=== PATIENT | male | born 1965 | race Caucasian/White ===

== ENCOUNTER 2024-07-07 13:09 | Emergency (ER) | payer MEDICAID ==
[~2024-07-07] VITALS: Ht 185.4 cm; Wt 145.8 kg
[2024-07-07 13:18] VITALS: BP 174/115; PULSE 87; RESP 16; TEMP 98.6; O2SAT 96
[2024-07-07] MEDS ORDERED: ATOR40TA PO (14:32)
[2024-07-07] MEDS ORDERED: APIX5TAB5 PO (14:32)
[2024-07-07] MEDS ORDERED: METO-411 PO (14:32)
[2024-07-07] MEDS ORDERED: RYT225T PO (14:32)
== END 2024-07-07 14:39 | disposition home or self-care (01) ==
LOC: ER 13:10
DX: Z00.8 Encounter for other general examination (principal); Z76.0 Encounter for issue of repeat prescription
CPT/HCPCS: 99281

== ENCOUNTER 2024-10-17 12:38 | Emergency (ER) | payer MEDICAID ==
[~2024-10-17] VITALS: Ht 188 cm; Wt 159.1 kg
[~2024-10-17 12:38] MED LIST: APIX5TAB5 PO; ATOR40TA PO; METO-411 PO; RYT225T PO
--- NOTE | 2024-10-17 12:54 | Physician Documentation ---
HPI ~ General Stated Complaint: MED REFILL Time Seen by MD: 13:02 History of Present Illness HPI Comments Presents to ER reporting that he is new to the area and he doesn't have a PCP yet. Requests refills on his medications. Denies any concerns and reports that he feels overall well today. Medication Reconciliation Allergies: Coded Allergies: No Known Allergies (Unverified , 10/17/24) Scheduled Apixaban (Eliquis), 1 TAB PO BID Apixaban (Eliquis), 1 TAB PO Q12H Atorvastatin Calcium* (Lipitor*), 1 TAB PO DAILY Atorvastatin Calcium* (Lipitor*), 1 TAB PO DAILY Ipratropium/Albuterol Sulfate (Duoneb 2.5-0.5 Mg/3 Ml Soln), 1 VIAL NEB Q12H Metoprolol Succinate (Metoprolol Succinate), 1 TAB PO DAILY Metoprolol Succinate (Metoprolol Succinate), 1 TAB PO DAILY Propafenone Hcl (RYTHMOL tablet), 1 TAB PO Q12H Propafenone Hcl (RYTHMOL tablet), 1 TAB PO Q12H Quetiapine Fumarate (Seroquel), 1 TAB PO HS Scheduled PRN Albuterol Sulfate (Ventolin Hfa), 2 PUFFS INH Q4HPRN PRN for wheezing Review of Systems ROS As stated above in the HPI, otherwise all systems are reviewed and negative. Physical Exam Physical Exam Physical Exam General: Alert, no apparent distress. Neck: Full range of motion. Respiratory: Lungs clear, no respiratory distress. Dim bases. Chest: No accessory muscle use. Cardiovascular: Regular rate and rhythm, no murmurs. Gastrointestinal: Soft, nontender, nondistended. Bowels sounds present. Extremities: Normal range of motion, no deformity. Neurologic: Oriented x4. Psychiatric: Normal mood and affect. Skin: Normal color, warm and dry. No edema, no ecchymosis. Progress Results/Orders Results/Orders Vital Signs 10/17/24 12:59 Temp 97.8 Pulse 89 Resp 18 B/P (MAP) 182/109 Pulse Ox 99 O2 Flow Rate 0 Medical Decision Making Differential Dx:Considerations: Include: Adverse circumstances, Economic, Psychosocial, Medical services unavail., Medication refill, Medication non- compliance Departure Time of Disposition: 13:03 Disposition: 01 HOME / SELF CARE / HOMELESS Impression: Primary Impression: Medication refill Discharge Instructions: Medicine Refill at the Emergency Department Additional Instructions: Good luck finding a primary care provider. Return for any emergent concerns. Referrals: NO PRIMARY CARE PROVIDER (PCP) Prescriptions Ipratropium/Albuterol Sulfate (Duoneb 2.5-0.5 Mg/3 Ml Soln) 0.5 Mg-3 Mg (2.5 Mg Base)/3 Ml Ampul.neb 1 VIAL NEB Q12H for 30 Days, #180 ML 0 Refills Prov: FIDE SOMMERS NP 10/17/24 Albuterol Sulfate (Ventolin Hfa) 90 Mcg Hfa.aer.ad 2 PUFFS INH Q4HPRN PRN for wheezing for 30 Days, #18 GM 0 Refills Prov: FIDE SOMMERS NP 10/17/24 Quetiapine Fumarate (SEROQUEL) 100 Mg Tablet 1 TAB PO HS for 30 Days, #30 TAB 0 Refills Prov: FIDE SOMMERS NP 10/17/24 Metoprolol Succinate (Metoprolol Succinate) 100 Mg Tab.sr.24h 1 TAB PO DAILY for 30 Days, #30 TAB 0 Refills Prov: FIDE SOMMERS NP 10/17/24 Atorvastatin Calcium* (Lipitor*) 40 Mg Tablet 1 TAB PO DAILY for 30 Days, #30 TAB Prov: FIDE SOMMERS NP 10/17/24 Propafenone Hcl (RYTHMOL tablet) 225 Mg Tablet 1 TAB PO Q12H for 30 Days, #60 TAB 0 Refills Prov: FIDE SOMMERS NP 10/17/24 Apixaban (ELIQUIS) 5 Mg Tablet 1 TAB PO Q12H for 30 Days, #60 TAB 0 Refills Prov: FIDE SOMMERS NP 10/17/24 Education Educated: Patient Educated regarding: diagnosis, treatment, prognosis, need for follow up Signature Scribe Signature: no scribe Attestation: The note accurately reflects work and decisions made by me.Fide Peace NP 10/17/24 13:12 FIDE SOMMERS NP Oct 17, 2024 12:54
[2024-10-17 12:59] VITALS: BP 182/109; PULSE 89; RESP 18; TEMP 97.8; O2SAT 99
[2024-10-17] MEDS ORDERED: ALBU18HF2 INH (13:05)
[2024-10-17] MEDS ORDERED: APIX5TAB3 PO (13:05)
[2024-10-17] MEDS ORDERED: RYT225T PO (13:05)
[2024-10-17] MEDS ORDERED: ATOR40TA PO (13:05)
[2024-10-17] MEDS ORDERED: METO-411 PO (13:05)
[2024-10-17] MEDS ORDERED: IPRA3AMP31 NEB (13:05)
[2024-10-17] MEDS ORDERED: QUET-1 PO (13:05)
== END 2024-10-17 13:11 | disposition home or self-care (01) ==
LOC: ER 12:39
DX: F41.9 Anxiety disorder, unspecified (principal); Z76.0 Encounter for issue of repeat prescription; Z79.899 Other long term (current) drug therapy
CPT/HCPCS: 99281

== ENCOUNTER 2024-11-08 10:36 | Emergency (ER) | payer MEDICAID ==
[~2024-11-08] VITALS: Ht 185.4 cm; Wt 146.9 kg
[~2024-11-08 10:36] MED LIST changes: +ALBU18HF2 INH; +APIX5TAB3 PO; +IPRA3AMP31 NEB; +QUET-1 PO
[2024-11-08 10:48] VITALS: BP 144/71; PULSE 69; RESP 20; O2SAT 96
[2024-11-08] MEDS ORDERED: APIX5TAB5 PO (11:07)
[2024-11-08] MEDS ORDERED: QUET-1 PO (11:07)
[2024-11-08] MEDS ORDERED: RYT225T PO (11:07)
[2024-11-08] MEDS ORDERED: METO-411 PO (11:07)
--- NOTE | 2024-11-08 11:07 | Physician Documentation ---
HPI ~ General Chief Complaint: Medication Refill Stated Complaint: MED REFILL Time Seen by MD: 11:01 History of Present Illness HPI Comments Patient presents here to have his medications refilled as he has had difficulty obtaining a physician in primary care. Denies any current complaints Without Medications Since: Nov 08, 2024 Medication Reconciliation Allergies: Coded Allergies: No Known Allergies (Unverified , 11/08/24) Scheduled Apixaban (Eliquis), 1 TAB PO Q12H Apixaban (Eliquis), 1 TAB PO BID Atorvastatin Calcium* (Lipitor*), 1 TAB PO DAILY Atorvastatin Calcium* (Lipitor*), 1 TAB PO DAILY Ipratropium/Albuterol Sulfate (Duoneb 2.5-0.5 Mg/3 Ml Soln), 1 VIAL NEB Q12H Metoprolol Succinate (Metoprolol Succinate), 1 TAB PO DAILY Metoprolol Succinate (Metoprolol Succinate), 1 TAB PO DAILY Propafenone Hcl (RYTHMOL tablet), 1 TAB PO Q12H Propafenone Hcl (RYTHMOL tablet), 1 TAB PO Q12H Quetiapine Fumarate (Seroquel), 1 TAB PO HS Scheduled PRN Albuterol Sulfate (Ventolin Hfa), 2 PUFFS INH Q4HPRN PRN for wheezing Review of Systems All Other Systems at this time: Reviewed and Negative ROS As stated above in the HPI, otherwise all systems are reviewed and negative. Physical Exam Physical Exam Vital Signs: Temperature: 97.9, Source: Temporal, Heart Rate: 69, Respiratory Rate: 20, BP: 144/71, Pulse Oximetry: 96, Weight: 146.900 Oxygen Flow Rate: 0 Physical Exam General: Alert, no apparent distress. Respiratory: Lungs clear, no respiratory distress. Cardiovascular: Regular rate and rhythm, no murmurs. Gastrointestinal: Soft, nontender, nondistended. Bowels sounds present. Neurologic: Oriented x4. Psychiatric: Normal mood and affect. Skin: Normal color, warm and dry. No edema, no ecchymosis. Progress Results/Orders Results/Orders Vital Signs 11/08/24 11/08/24 10:48 11:20 Temp 97.9 97.9 Pulse 69 Resp 20 B/P (MAP) 144/71 Pulse Ox 96 O2 Flow Rate 0 Medical Decision Making Findings Meds refilled as requested Differential Dx:Considerations: Include: Adverse circumstances, Economic, Psychosocial, Medical services unavail., Medication refill, Medication non- compliance, Other Departure Impression: Primary Impression: General medical exam Discharge Instructions: Medicine Refill at the Emergency Department Referrals: NO PRIMARY CARE PROVIDER (PCP) Prescriptions Quetiapine Fumarate (SEROQUEL) 100 Mg Tablet 1 TAB PO HS for 30 Days, #30 TAB 0 Refills Prov: BISHOP BARRY NP 11/08/24 Apixaban (Eliquis) 5 Mg (74 Tabs) Tab.ds.pk 1 TAB PO BID for 30 Days, #60 TAB 3 Refills Prov: BISHOP BARRY NP 11/08/24 Metoprolol Succinate (Metoprolol Succinate) 100 Mg Tab.sr.24h 1 TAB PO DAILY for 30 Days, #30 TAB 3 Refills Prov: BISHOP BARRY NP 11/08/24 Propafenone Hcl (RYTHMOL tablet) 225 Mg Tablet 1 TAB PO Q12H for 30 Days, #60 TAB 3 Refills Prov: BISHOP BARRY NP 11/08/24 Education Educated: Patient Educated regarding: diagnosis Signature Scribe Signature: h Attestation: Scribed for Bishop Barry Wound Treatment Rn by Bishop Peace NP . 11/08/24 18:28 BISHOP BARRY NP Nov 08, 2024 11:07
[2024-11-08 11:20] VITALS: TEMP 97.9
== END 2024-11-08 11:21 | disposition home or self-care (01) ==
LOC: ER 10:37
DX: F20.9 Schizophrenia, unspecified (principal); Z76.0 Encounter for issue of repeat prescription; Z79.899 Other long term (current) drug therapy
CPT/HCPCS: 99281

== ENCOUNTER 2025-02-28 10:47 | Emergency (ER) | payer MEDICAID ==
[~2025-02-28] VITALS: Ht 185.4 cm; Wt 150.0 kg
[~2025-02-28 10:47] MED LIST changes: -RYT225T PO; +[UNRECOGNIZED DRUG - CODE] CORPAK; +[UNRECOGNIZED DRUG - CODE] PO
[2025-02-28 10:54] VITALS: BP 159/102; PULSE 88; RESP 16; TEMP 97; O2SAT 94
[2025-02-28] MEDS ORDERED: ATOR40TA72 PO (12:24)
[2025-02-28] MEDS ORDERED: APIX5TAB3 PO (12:24)
[2025-02-28] MEDS ORDERED: [UNRECOGNIZED DRUG - CODE] PO (12:25)
--- NOTE | 2025-02-28 12:26 | Physician Documentation ---
HPI ~ General Chief Complaint: Medication Refill Stated Complaint: MED REQUEST Time Seen by MD: 10:58 Primary Medical Doctor: none History of Present Illness HPI Comments 59-year-old male with chronic medical history to include coronary artery disease presents again in the Emergency department for prescription refill. Has been in the [facility] for a year yet has not establish with primary care or healthcare maintenance and prescription refills. He has presented to the emergency department 5 times in the last year for medication refills. Medication Reconciliation Allergies: Coded Allergies: No Known Allergies (Unverified , 02/28/25) Scheduled Apixaban (Eliquis), 1 TAB PO Q12H Apixaban (Eliquis), 1 TAB PO BID Apixaban (Eliquis), 1 TAB PO Q12H Apixaban (Eliquis), 1 TAB PO Q12H Atorvastatin Calcium (Atorvastatin Calcium), 1 TAB PO DAILY Atorvastatin Calcium* (Lipitor*), 1 TAB PO DAILY Ipratropium/Albuterol Sulfate (Duoneb 2.5-0.5 Mg/3 Ml Soln), 1 VIAL NEB Q12H Metoprolol Succinate (Metoprolol Succinate), 1 TAB PO DAILY Metoprolol Succinate (Metoprolol Succinate), 1 TAB PO DAILY Propafenone Hcl (RYTHMOL tablet), 1 TAB PO Q12H Propafenone Hcl (RYTHMOL tablet), 1 TAB PO Q12H Propafenone Hcl (RYTHMOL tablet), 225 MG [place] BID Propafenone Hcl (RYTHMOL tablet), 1 TAB PO Q12H Quetiapine Fumarate (Seroquel), 1 TAB PO HS Quetiapine Fumarate (Seroquel), 1 TAB PO HS Scheduled PRN Albuterol Sulfate (Ventolin Hfa), 2 PUFFS INH Q4HPRN PRN for wheezing Review of Systems All Other Systems at this time: Reviewed and Negative Physical Exam Physical Exam Vital Signs: RN Vital Signs have been reviewed: Yes, Temperature: 97.0, Source: Temporal, Heart Rate: 88, Respiratory Rate: 16, BP: 159/102, Pulse Oximetry: 94, Weight: 150.000 Oxygen Flow Rate: 0 General Appearance: alert, WD/WN, obese Pupils/EOM/Fundus: PERRLA Respiratory: lungs clear Chest: no accessory muscle use Cardiovascular: normal peripheral pulses, regular rate, rhythm, no edema, no gallop, no JVD, no murmur Gastrointestinal: normal palpation Extremities: normal inspection Neurologic: oriented x4 Motor / Sensory: no motor deficit, no sensory deficit Thought/Hallucinations: normal thought pattern Affect: appropriate Skin: warm/dry Progress Results/Orders Results/Orders Vital Signs 02/28/25 10:54 Temp 97.0 Pulse 88 Resp 16 B/P (MAP) 159/102 Pulse Ox 94 O2 Flow Rate 0 Medical Decision Making Additional information obtaine: other (Rx) Findings 59-year-old male who can reprint since to the emergency department requesting a prescription refill. Has been without primary care management for a year yet receiving prescriptions every couple of months in the emergency department for management of coronary artery disease. I have refilled three of the four prescriptions and advised the patient the he must follow up with local primary care services for additional prescription refills and more importantly healthcare maintenance regarding his known health issues and preventive health care maintenance. Differential Dx:Considerations: Include: Adverse circumstances, Economic, Psychosocial, Medical services unavail., Medication refill, Medication non-com pliance Departure Disposition: 01 HOME / SELF CARE / HOMELESS Impression: Primary Impression: Medication refill Additional Impression: CAD (coronary artery disease) Condition: Stable Discharge Instructions: Medicine Refill at the Emergency Department Additional Instructions: Please establish care with [facility] for healthcare maintenance and further medication refills. Referrals: NO PRIMARY CARE PROVIDER (PCP) Prescriptions Propafenone Hcl (RYTHMOL tablet) 225 Mg Tablet 1 TAB PO Q12H for 30 Days, #60 TAB 0 Refills Prov: HENRY BENTLEY 02/28/25 Atorvastatin Calcium (Atorvastatin Calcium) 40 Mg Tablet 1 TAB PO DAILY for 30 Days, #30 TAB 0 Refills Prov: HENRY BENTLEY 02/28/25 Apixaban (ELIQUIS) 5 Mg Tablet 1 TAB PO Q12H for 30 Days, #60 TAB 0 Refills Prov: HENRY BENTLEY 02/28/25 Education Educated: Patient Educated regarding: diagnosis, treatment, prognosis, need for follow up Signature Scribe Signature: . Attestation: . HENYR BENTLEY Feb 28, 2025 12:26
== END 2025-02-28 12:35 | disposition home or self-care (01) ==
LOC: ER 10:48
DX: I25.10 Atherosclerotic heart disease of native coronary artery without angina pectoris (principal); Z76.0 Encounter for issue of repeat prescription; Z79.899 Other long term (current) drug therapy
CPT/HCPCS: 99282

== ENCOUNTER 2025-03-18 09:55 | Emergency (ER) | payer MEDICAID ==
[~2025-03-18] VITALS: Ht 185.4 cm; Wt 149.1 kg
[~2025-03-18 09:55] MED LIST changes: +ATOR40TA72 PO
[2025-03-18 10:12] VITALS: BP 171/106; PULSE 96; RESP 16; TEMP 97.1; O2SAT 92
--- NOTE | 2025-03-18 11:16 | Physician Documentation ---
HPI ~ General Chief Complaint: Medication Refill Stated Complaint: MED REFILLS Time Seen by MD: 10:26 OK to notify your PCP?: Yes Primary Medical Doctor: none Source: patient Mode of Arrival: POV Exam Limitations: no limitations History of Present Illness HPI Comments Requesting refill of multiple medications. He is requesting Eliquis, metoprolol, atorvastatin, run fall, albuterol inhaler refill and albuterol nebulizer fluid. He reports that he uses his nebulizer once to twice a day. He also is wanting to stop smoking in his cut himself down to less than half a pack a day. He is requesting some nicotine patches. Reports that he has turned in a new patient packet to [facility] in his just waiting for an appointment to take over management of his medications. Medication Reconciliation Allergies: Coded Allergies: No Known Allergies (Unverified , 03/18/25) Scheduled Albuterol Sulfate Nebs* (Proventil Nebs*), 1 VIAL NEB BID Apixaban (Eliquis), 1 TAB PO Q12H Apixaban (Eliquis), 1 TAB PO BID Apixaban (Eliquis), 1 TAB PO Q12H Apixaban (Eliquis), 1 TAB PO Q12H Atorvastatin Calcium (Atorvastatin Calcium), 1 TAB PO DAILY Atorvastatin Calcium* (Lipitor*), 1 TAB PO DAILY Ipratropium/Albuterol Sulfate (Duoneb 2.5-0.5 Mg/3 Ml Soln), 1 VIAL NEB Q12H Metoprolol Succinate (Metoprolol Succinate), 1 TAB PO DAILY Metoprolol Succinate (Metoprolol Succinate), 1 TAB PO DAILY Nicotine 14 MG Patch* (Habitrol 14 MG Patch*), 1 PATCH TOP DAILY Propafenone Hcl (RYTHMOL tablet), 1 TAB PO Q12H Propafenone Hcl (RYTHMOL tablet), 1 TAB PO Q12H Propafenone Hcl (RYTHMOL tablet), 225 MG [place] BID Propafenone Hcl (RYTHMOL tablet), 1 TAB PO Q12H Quetiapine Fumarate (Seroquel), 1 TAB PO HS Quetiapine Fumarate (Seroquel), 1 TAB PO HS Scheduled PRN Albuterol Sulfate (Ventolin Hfa), 2 PUFFS INH Q4HPRN PRN for wheezing Past Medical History Smoking Status: Current every day smoker Review of Systems All Other Systems at this time: Reviewed and Negative Physical Exam Physical Exam Vital Signs: RN Vital Signs have been reviewed: Yes, Temperature: 97.1, Source: Temporal, Heart Rate: 96, Respiratory Rate: 16, BP: 171/106, Pulse Oximetry: 92, Weight: 149.100 Oxygen Flow Rate: 0 Pulse Oximetry Reflects: adequate oxygenation Physical Exam General: Alert, no distress. HEENT: No injection, moist mucous membranes. Neck: Full range of motion. Respiratory: No respiratory distress, equal chest rise and fall. Chest: No accessory muscle use. Cardiovascular: Regular rate and rhythm. Gastrointestinal: Nondistended. Extremities: Normal range of motion, no deformity. Neurologic: Oriented x4. Psychiatric: Normal mood and affect. Skin: Normal color, warm and dry. Progress Results/Orders Reviewed/noted all lab results: Yes Results/Orders Vital Signs 03/18/25 10:12 Temp 97.1 Pulse 96 Resp 16 B/P (MAP) 171/106 Pulse Ox 92 O2 Flow Rate 0 Medical Decision Making Additional information obtaine: old records Findings Requesting refill of all medications. Has turned in a new patient packet for [facility] just waiting for an appointment. I refilled all medications. He has no medical concerns for today. The stepped to nicotine patches since he smokes less than a half pack a day. Differential Dx:Considerations: Include: Adverse circumstances, Economic, Psychosocial, Medical services unavail., Medication refill Departure Disposition: HOME / SELF CARE / HOMELESS Impression: Primary Impression: Medication refill Condition: Stable Discharge Instructions: Medicine Refill at the Emergency Department Referrals: NO PRIMARY CARE PROVIDER (PCP) Prescriptions Nicotine 14 MG Patch* (Habitrol 14 MG Patch*) 1 Each Patch.td24 1 PATCH TOP DAILY for smoking cessation for 28 Days, #28 PATCH Prov: CHEY DUMONTP 03/18/25 Albuterol Sulfate Nebs* (Proventil Nebs*) 2.5 Mg/0.5 Ml Vial.neb 1 VIAL NEB BID for shortness of breath for 30 Days, #60 ML Prov: CHEY DUMONT [employer] 03/18/25 Propafenone Hcl (RYTHMOL tablet) 225 Mg Tablet 1 TAB PO Q12H for 30 Days, #60 TAB 0 Refills Prov: CHEY DUMONT 03/18/25 Atorvastatin Calcium (Atorvastatin Calcium) 40 Mg Tablet 1 TAB PO DAILY for 30 Days, #30 TAB 0 Refills Prov: CHEY DUMONT 03/18/25 Apixaban (ELIQUIS) 5 Mg Tablet 1 TAB PO Q12H for 30 Days, #60 TAB 0 Refills Prov: CHEY DUMONT 03/18/25 Metoprolol Succinate (Metoprolol Succinate) 100 Mg Tab.sr.24h 1 TAB PO DAILY for 30 Days, #30 TAB 3 Refills Prov: CHEY DUMONT 03/18/25 Albuterol Sulfate (Ventolin Hfa) 90 Mcg Hfa.aer.ad 2 PUFFS INH Q4HPRN PRN for wheezing for 30 Days, #18 GM 0 Refills Prov: CHEY DUMONT 03/18/25 Education Educated: Patient Educated regarding: diagnosis, treatment, prognosis, need for follow up Additional Comment Medical Screen Exam This patient recieved a medical screening examination. After reviewing the individual's medical complaints with presenting symptoms and performing an appropriate physical examination, it was determined that no immediate life- threatening emergency medical condition is present. This individual is also not a women having contractions. Signature Scribe Signature: . Attestation: Scribed for Chey Dumont by Chey Peace NP . 03/18/25 11:35 Parts of this note were created using [employer] voice recognition software program. While efforts were made to correct any mistakes made by this voice recognition software program, nonsensical phrases may remain in this note. In addition, there may be errors and syntax, grammar, content and spelling. CHEY DUMONT Mar 18, 2025 11:16
[2025-03-18] MEDS ORDERED: ALB0.5UD NEB (11:32)
[2025-03-18] MEDS ORDERED: [UNRECOGNIZED DRUG - CODE] PO (11:32)
[2025-03-18] MEDS ORDERED: ALBU18HF2 INH (11:32)
[2025-03-18] MEDS ORDERED: METO-411 PO (11:32)
[2025-03-18] MEDS ORDERED: APIX5TAB3 PO (11:32)
[2025-03-18] MEDS ORDERED: NICO-631 TOP (11:32)
[2025-03-18] MEDS ORDERED: ATOR40TA72 PO (11:32)
== END 2025-03-18 11:37 | disposition home or self-care (01) ==
LOC: ER 09:55
DX: F17.210 Nicotine dependence, cigarettes, uncomplicated (principal); Z76.0 Encounter for issue of repeat prescription; Z79.899 Other long term (current) drug therapy
CPT/HCPCS: 99282